=== PATIENT | female | born 1935 | race Caucasian/White ===

== ENCOUNTER 2018-07-16 12:43 | Emergency (ER) | payer MEDICARE ==
[~2018-07-16] VITALS: Ht 160 cm; Wt 98.9 kg
[~2018-07-16 12:43] MED LIST: ALBUTEROL SULF8.5 GM; ANASTROZOLE1 MG PO; CEFUROXIME500 MG PO; LOSARTAN POTASS50 MG PO; NITROFURANTOIN50 MG PO; OMEPRAZOLE40 MG PO; PANTOPRAZOLE SO40 MG PO; REGLAN10 MG PO; SIMVASTATIN20 MG PO; VICODIN 5-5001 EACH PO
--- NOTE | 2018-07-16 14:03 | Diagnostic Imaging Report ---
EXAMINATION: CHEST 2 VIEWS INDICATION: Cough, rule out pneumonia. COMPARISON: None FINDINGS: TUBES and LINES: None. LUNGS: Lungs are well inflated. Lungs are clear. There is no evidence of pneumonia or pulmonary edema. PLEURA: No pleural effusion or pneumothorax. Slight nonspecific elevation of the right hemidiaphragm. HEART AND MEDIASTINUM: Cardiac silhouette is unremarkable. There is a large hiatal hernia. Atherosclerotic calcifications of the aortic arch. BONES AND SOFT TISSUES: No acute osseous abnormality. Old healed left-sided rib fractures. Surgical clips project over the right hemithorax. UPPER ABDOMEN: No free air under the diaphragm. IMPRESSION: No evidence of pneumonia. Large hiatal hernia. Signed by: Dr. Ramandeep Shen MD on 07/16/2018 2:00 PM
[2018-07-16 14:09] LABS: INFLUENZAE A&B ANTIGEN (RAPID) POSITIVE FLU A (NEGATIVE)
== END 2018-07-16 15:07 | disposition home or self-care (01) ==
LOC: ER 12:43
DX: R05 Cough (principal); M79.10 Myalgia, unspecified site; J06.9 Acute upper respiratory infection, unspecified; J02.9 Acute pharyngitis, unspecified
CPT/HCPCS: 71046; 87400; 99283